=== PATIENT | male | born 1930 | race Caucasian/White ===

== ENCOUNTER 2017-09-27 05:57 | Day surgery (SDC) | payer OTHER, MEDICARE ==
[~2017-09-27] VITALS: Ht 170.2 cm; Wt 93.0 kg
[~2017-09-27 05:57] MED LIST: ASCO500 PO; ASPI81CH PO; IBUP400 PO; IRON PO; MAGNESIUM PO; OMEP20ER PO; Omeprazole20 M1 PO; TERA5 PO
== END 2017-09-27 09:47 | disposition home or self-care (01) ==
LOC: ORSCMMR 05:57
PROVIDERS: Surgery
PROC: 0YU50JZ Supplement Right Inguinal Region with Synthetic Substitute, Open Approach (ICD-10-PCS; principal; 2017-09-27 07:30)
DX: K40.90 Unilateral inguinal hernia, without obstruction or gangrene, not specified as recurrent (principal); I10 Essential (primary) hypertension; J45.909 Unspecified asthma, uncomplicated; K21.9 Gastro-esophageal reflux disease without esophagitis; Z79.899 Other long term (current) drug therapy
CPT/HCPCS: C1781; J0690; J2250; J2405; J3010; J7120